=== PATIENT | male | born 1965 | race Caucasian/White ===

== ENCOUNTER 2023-08-31 14:49 | Outpatient (CLI) | payer OTHER, SELFPAY ==
[2023-08-31 17:13] LABS: Erythrocyte Sedimentation Rate 16 mm/hr (0-20)
[2023-09-05 12:15] LABS: BCR/abl Prior Result Not Given
[2023-09-05 12:59] LABS: BCR/abl P190 Not Detected; BCR/abl P210 Not Detected
[2023-09-05 13:00] LABS: BCR/abl P190 Chg YES; BCR/abl P210 Chg YES
== END 2023-08-31 14:50 | disposition home or self-care (01) ==
LOC: ANHLAB 14:57
PROVIDERS: PCP Family Medicine; Visit Provider Internal Medicine Hematology & Oncology
DX: D72.829 Elevated white blood cell count, unspecified (principal)
CPT/HCPCS: 36415; 81206; 81207; 85652; 88184

== ENCOUNTER 2024-01-18 13:40 | Outpatient (CLI) | payer OTHER, SELFPAY ==
[2024-01-18 13:53] LABS: Basophils Absolute Auto 0.1 K/mm3 (0.0-0.1); Basophils Percent Auto 0.7 % (0.2-1.2); Eosinophils Absolute Auto 0.3 K/mm3 (0-0.3); Eosinophils Percent Auto 2.3 % (0-4.4); Hematocrit 40.3 % (42.0-52.0); Hemoglobin 13.6 g/dL (14.0-18.0); Immature Granulocyte Absolute 0.07 K/mm3 (0.00-0.031); Immature Granulocyte Percent A 0.5 % (0-0.5); Lymphocytes Absolute Auto 4.79 K/mm3 (0.9-3.2); Lymphocytes Percent Auto 34.7 % (18.3-44.2); Mean Corpuscular HGB Conc 33.7 g/dl (32-36); Mean Corpuscular Hemoglobin 30.6 pg (26-34); Mean Corpuscular Volume 90.6 fl (80-100); Mean Platelet Volume 8.6 fl (7.4-10.4); Monocytes Absolute Auto 0.9 K/mm3 (0.1-0.6); Monocytes Percent Auto 6.5 % (2.6-8.5); Neutrophils Absolute Auto 7.6 K/mm3 (1.3-6.7); Neutrophils Percent Auto 55.3 % (45.5-73.1); Platelet Count Result 312 k/mm3 (150-375); Red Blood Count 4.45 M/mm3 (4.6-6.20); Red Cell Distribution Width 12.5 % (11.5-14.5); White Blood Count 13.8 K/mm3 (4.5-10.0)
== END 2024-01-18 13:41 | disposition home or self-care (01) ==
LOC: ANHLAB 13:44
PROVIDERS: PCP Family Medicine; Visit Provider Internal Medicine Hematology & Oncology
DX: D72.829 Elevated white blood cell count, unspecified (principal)
CPT/HCPCS: 36415; 85025

== ENCOUNTER 2024-10-10 14:56 | Outpatient (CLI) | payer OTHER, SELFPAY ==
--- OUTSIDE RECORDS SUMMARY | 2024-10-10 15:21 | XMS_ITS | Continuity of Care Document ---
Author Organization [facility] Address [address] [place] [address] Phone Care Team Providers Care Supervisor Of Research Name Role Phone Kennedi Purcell Unavailable Unavailable Allergies, Adverse Reactions, Alerts Substance Reaction Status Criticality No Known Allergies Active No Inform ation Medications Medication Instructions Dosage Effective Dates (start - stop) Status Comments cyclobenzaprine 5 mg tablet take 1 tablet by oral route 3 times every day as needed 5 MG - Active diclofenac sodium 50 mg tablet,delayed release take 1 tablet by oral route 3 times every day with food - Active lisinopril 20 mg tablet take 1 tablet by oral route every day 20 MG - Active allopurinol 100 mg tablet take 1 tablet by oral route every day 100 MG - Active gabapentin 300 mg capsule take 1 capsule by oral route 3 times every day as needed 300 MG - No Longer Active Procedures Procedure Date OFFICE/OUTPATIENT VISIT, [facility] Advance Directives Directive Yes / No Effective Date File Name No Information Encounters Encounter Description Practice Location Reason(s) For Visit Diagnoses Date Provider Providers Copied on Encounter OFFICE/OUTPAT IENT VISIT, [facility], [address] [place] [address], [facility], tel:[phone] [place] Back pain (chief complaint) Radicular pain in right arm Huseyin Kolb. [address] [place] [address], [facility], . tel:[phone] Family History Family Member Type Diagnosis Age At Onset No Information Payers Payer name Insurance type Covered republican ID Authoriza tion(s) No Information Social History Type Description Quantity Date Captured Comments Alcohol Use Details Unknown Caffeine Use Details Unknown Tobacco Use Status No Information Smoking Status No Information Sex Male Vital Signs Date / Time: Height Weight BMI Pulse Rate Blood Pressure Temperature Respiratory Rate Body Surface Area Head Circumference Head Circ. Percentile Wt./Dannie. Percentile BMI percentile Pulse Ox Inhaled Ox 10:05 AM 67.00 in 106.685 kg (235.20 lbs) 36.8 4 kg/m eter (2) 99 /min 110/75 mm[Hg] 98.60 F 22 /min 98 % 21 % Chief Complaint And Reason For Visit From encounter dated 06/14/2020 09:52'. Back pain (chief complaint). Description: Onset: 6 days ago. Severity level is moderate-severe. Theproblem is fluctuating. It occurs intermittently. Location of pain is middle back and right flank. Pain is radiated to the right arm.The patient describes the pain as an ache and numbness. Context: no injury. Symptoms are aggravated by ascending stairs, bending, changing positions, coughing, daily activities, defecation, descending stairs, extension, flexion, jumping, lifting, lying/rest, pushing, rolling over in bed, running, sneezing, standing, twisting and walking. Symptoms are relieved by heat. Additional information: causes numbness and muscle twitches in right arm. Reason For Referral Reason For Referral No Information Plan Of Treatment Date Type Action Status Patient Education Neuropathic Pain: Care Instructions completed History Of Present Illness Encounter Date Complaint History Of Prese nt Illness Back pain Onset: 6 days ag o. Severity level is moderate-severe. The problem is fluctuating. It occurs intermittently. Location of pain is middle back and right flank. Pain is radiated to the right arm.The patient describes the pain as an ache and numbness. Context: no injury. Symptoms are aggravated by ascending stairs, bending, changing positions, coughing, daily activities, defecation, descending stairs, extension, flexion, jumping, lifting, lying/rest, pushing, rolling over in bed, running, sneezing, standing, twisting and walking. Symptoms are relieved by heat. Additional information: causes numbness and muscle twitches in right arm. Functional Status Date Functional Assessmen t Pain Score 6/10 Instructions Date Instruction Additional Infor mation Ice, heat, gentle ma ssage and stretching Related to Radicular pain in right arm Ok to take Tylenol i f prescribed medicine is not helping pain Related to Radicular pain in right arm Assessments Type Assessment Date assessment Radicular pain in right arm Mental Status Date Cognitive Assessment Orientation - Dunmor ed to time, place, person, situation. Patient Care Teams Name Effective Dates (start - stop) Status Members No Information
--- OUTSIDE RECORDS SUMMARY | 2024-10-10 15:21 | XMS_ITS | Clinical Summary ---
Author Organization [facility] Address [address] [place] [id number] Care Team Providers Care Defence Intelligence Analyst Name Role Phone Lisa Alvarado MD Primary Care Provider [phone] Allergies No known active allergies Medications lisinopril (PRINIVIL) 20 MG tablet Take 1 tablet (20 mg total) by mouth daily. Active atorvastatin (LIPITOR) 40 MG tablet Take 1 tablet (40 mg total) by mouth nightly at bedtime. Active omeprazole (PRILOSEC) 20 MG capsule Take 1 capsule (20 mg total) by mouth daily. Active fexofenadine (DADA) 180 MG tablet Take 1 tablet (180 mg total) by mouth daily. Active methylPREDNISol one, RUPA, (MEDROL DOSEPAK) 4 MG tablet Follow package directions 1 each 3 Active Active Problems No known active problems Social History Tobacco Use Types Packs/Day Years Used Date Smoking Tobacco: Every Day Cigarettes Smokeless Tobacco: Never Alcohol Use Standard Drinks/Week Comments Yes 0 (1 standard drink = 0.6 oz pur e alcohol) ocassionally Sex and Gender Information Value Date Recorded Sex Assigned at Not on file Legal Sex Male 8:29 AM CDT Gender Identity Not on file Sexual Orientation Not on file Last Filed Vital Signs Vital Sign Reading Time Taken Comments Blood Pressure 132/72 12/22/2022 3:05 PM CDT Pulse 92 12/22/2022 3:15 PM CDT Temperature 37.2 C (99 F) 12/22/2022 2:01 PM CDT Respiratory Rate 20 12/22/2022 3:15 PM CDT Oxygen Saturation 92% 12/22/2022 3:15 PM CDT Inhaled Oxygen Concentration - - Weight 108.4 kg (238 lb 15.7 oz) 12/19/2022 9:38 AM CDT Height 167.6 cm (5' 6 ) 12/19/2022 9:38 AM CDT Body Mass Index 38.57 12/19/2022 9:38 AM CDT Plan of Treatment Health Maintenance Due Date Last Done Comments Colorectal Cancer Screening Colonoscopy (10 Years) 1966 Annual Physical 1969 Hepatitis C 1984 Hepatitis B Vaccines (1 of 3 - 19+ 3-dose series) 1985 Zoster Vaccines (1 of 2) 2016 Pneumococcal Vaccine: Pediatrics (0 to 5 Years) and At-Risk Patients (6 to 64 Years) (2 of 2 - PCV) 04/06/2019 04/06/2018 COVID-19 Vaccine (2023-2 5 season) 2024 11/20/2020, 10/27/2020 DTaP, Tdap and Td Vaccines ( 2 - Td or Tdap) 10/24/2027 10/23/2017 Meningococcal B Vaccine Aged Out No l onger eligible based on patient's age to complete this topic Meningococcal Vaccine Aged Out No latisha azalia eligible based on patient's age to complete this topic RSV Immunizations Under 20 Months Aged Out No longer eligible b ased on patient's age to complete this topic Insurance GENERIC - COMMERCIAL Care Teams Defence Intelligence Analyst Relationship Specialty [place] [id number] [address], [address]ES [id number] PCP - General FAMILY PRACTICE 12/21/22
--- OUTSIDE RECORDS SUMMARY | 2024-10-10 15:22 | XMS_ITS | Encounter Summary ---
Author Organization [facility] Address [address] [place] [address] Care Team Providers Care Enthone Solder Stripper Name Role Phone Deloris Castañeda MD Primary Care Provider [phone] Encounter Details Date Type Department Care Team (Late st Contact Info) Description 12/04/2023 Telephone [facility] [address] [place] [id number] Mary Velasquez, RT Social History Tobacco Use Types Packs/Day Years Used Date Smoking Tobacco: Never Assessed Personal Safety Answer Date Recorded Getting School Help Needed Not on file 06/16 Sex and Gender Information Value Date Recorded Sex Assigned at Not on file Legal Sex Male 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
--- OUTSIDE RECORDS SUMMARY | 2024-10-10 15:22 | XMS_ITS | Clinical Summary ---
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 Gender Identity Not on file Sexual Orientation Not on file Plan of Treatment Health Maintenance Due Date Last Done Comments Albumin Creatinine Ratio, Urine 1966 Colon Cancer Screening-Colonoscopy 1966 Depression Screening 1966 Hepatitis C Screening 1966 Prostate Cancer Screening-PSA 1966 eGFR 1966 Dilated Eye Exam 1966 Foot Exam 1966 Lipid Panel 1966 Hepatitis B Screening 1984 Regular Well Visit/Exam 18-64 1984 Zoster Vaccine (1 of 2) 2016 Pneumococcal vaccine <65 (2 of 2 - PCV) 04/06/2019 04/06/2018 Covid-19 Vaccine (3 - 2023-2 5 season) 2024 11/20/2020, 10/27/2020 Influenza Vaccine (#1) 2024 , 04/06/2018, 04/21/2017 Hemoglobin A1C 08/22/2024 02/20/2024, 01/0 03/2024, 02/13/2023, Additional history exists DTaP/Tdap/Td Vaccine (2 - Td or Tdap) 10/24/2027 10/23/2017 Insurance [facility] Address: [address] [address] [place] [address] [employer] OPEN ACCESS Care Teams Bumper And Painter Relationship Specialty Start Date End Date Deloris Castañeda MD PCP - General Internal Medicine 12/01/23
--- OUTSIDE RECORDS SUMMARY | 2024-10-10 15:22 | XMS_ITS | Clinical Summary ---
Author Organization [employer] [facility] [place] Address [address] [place] [address] [place] [address] Care Team Providers Care Electric Deicer Assembler Name Role Phone Deloris Castañeda MD Primary Care Provider [phone] Allergies No known active allergies Medications OMEGA-3 FATTY ACIDS (FISH OIL ORAL) Take by mouth. Activ e bi-level machineIndication s:PAVAN (obstructive sleep apnea) CWP with heated humidifier. Length of Need: 99 mo full face Simplus mask 1 per 6 mo, mask only every 3 mos ,1 cushions per mo, Tubing heated 1 per 3 mo, water chamber 1 per 6 months, chin strap 1 per 6 months, filters disposable 2 per month, filters reusable 1 per 6 months. IPP 22, EPP 18. 1 Each 022 Active ipratropium bromide (ATROVENT) 42 mcg (0.06 %) [place], Non-AerosolIndica tions:Non-seasona l allergic rhinitis, unspecified trigger Administer 2 Sprays in each nostril 3 times daily. 15 mL 2 024 Active CPAP / BIPAP supplies Length of need: 99 months Mask Type: full face with headgear every 6 months, mask only every 3 months,1 cushions per month. Tubing: heated 1 every 3 months, water chamber 1 every 6 months, chin strap 1 every 6 months, filters disposable 2 per month, filters reusable 1 per 6 months. 1 Each 024 Active Blood-Glucose Meter (Blood Glucose Monitoring) KitIndications:Ty pe 2 diabetes mellitus without complication, without long-term current use of insulin ([facility]) Use daily for blood glucose monitoring. Please dispense device covered by insurance. 1 Each 1 08/22/2 024 Active blood sugar diagnostic (Blood Glucose Test) StripIndications: Type 2 diabetes mellitus without complication, without long-term current use of insulin ([facility]) Test blood glucose daily fasting. 100 Each 024 Active lancetsIndication s:Type 2 diabetes mellitus without complication, without long-term current use of insulin ([facility]) Use daily for blood sugar monitoring. 100 Each 024 Active metFORMIN (GLUCOPHAGE) 500 mg tabletIndications :Type 2 diabetes mellitus without complication, without long-term current use of insulin ([facility]) Take 1 Tablet (500 mg) by mouth daily at bedtime. 90 Tablet 025 Active rosuvastatin (CRESTOR) 40 mg tabletIndications :Hyperlipidemia, unspecified hyperlipidemia type Take 1 Tablet (40 mg) by mouth daily at bedtime. 90 Tablet 025 Active omeprazole (PriLOSEC) 20 mg Tablet, Delayed Release (E.C.)Indications :Personal history of peptic ulcer disease Take 1 Tablet (20 mg) by mouth daily before breakfast. 90 Tablet 025 Active fexofenadine (DADA) 180 mg tabletIndications :Seasonal allergic rhinitis, unspecified trigger Take 1 Tablet (180 mg) by mouth daily. 90 Tablet 025 Active aspirin (Kushal Low Dose Aspirin) 81 mg Tablet, Delayed Release (E.C.)Indications :HTN (hypertension), benign Take 1 Tablet (81 mg) by mouth daily. 025 Active varenicline tartrate (CHANTIX) 1 mg TabletIndications :Cigarette nicotine dependence, uncomplicated Take 1 Tablet (1 mg) by mouth 2 times daily. 180 Tablet 2 025 Active fluticasone propionate (Flonase) 50 mcg/spray [place], Suspension nasal inhalerIndication s:Non-seasonal allergic rhinitis, unspecified trigger Administer 2 Sprays in each nostril daily. 32 Gram 025 Active lisinopriL (PRINIVIL) 20 mg tabletIndications :HTN (hypertension), benign Take 1 Tablet (20 mg) by mouth daily. 90 Tablet 025 Active tirzepatide (Mounjaro) 5 mg/0.5 mL Pen InjectorIndicatio ns:Type 2 diabetes mellitus without complication, without long-term current use of insulin ([facility]) Inject 0.5 mL (5 mg) by subcutaneous injection every 7 days. 2 mL 025 Active lisinopriL (PRINIVIL) 20 mg tabletIndications :HTN (hypertension), benign Take 1 Tablet (20 mg) by mouth daily. 90 Tablet 025 2024 Discontinued(R eorder) tirzepatide (Mounjaro) 2.5 mg/0.5 mL Pen InjectorIndicatio ns:Type 2 diabetes mellitus without complication, without long-term current use of insulin ([facility]) Inject 0.5 mL (2.5 mg) by subcutaneous injection every 7 days. 2 mL 025 2024 Discontinued mupirocin calcium (BACTROBAN) 2 % CreamIndications: Papule of skin Apply to affected area 2 times daily for 14 days. Apply to skin are of concern for 10 days , twice daily. 22 Gram 025 2024 Active Problems Problem Noted Date Diagnosed Date Type 2 diabetes mellitus wit hout complication, without long-term current use of insulin 02/22/2024 Hx of gastric ulcer 11/23/2023 Lung cancer screening declined by patient 2022 Low serum alkaline phosphatase 08/16/2022 Idiopathic gout 03/09/2022 Left chronic serous otitis media 03/09/2022 Leucocytosis 08/31/2018 Overview (08/17/2023): 08/2023 - eval with hematology. Possibly reactive. Ongoing work up. Non-seasonal allergic rhinitis 08/31/2018 PAVAN (obstructive sleep apnea) 08/31/2018 Obesity (BMI 30.0-34.9) 08/31/2018 Personal history of peptic ulcer disease 018 HTN (hypertension), benign 09/19/2017 Elevated triglycerides with high cholesterol Cigarette dependence 06/14/2017 Resolved Problems Problem Noted Date Diagnosed Date Resolved Date Smoker 11/14/2022 07/13/2023 Left hand pain 03/09/2022 07/13/2023 Hyperkalemia 03/09/2022 07/13/2023 Prediabetes 06/14/2017 02/22/2024 Encounters Date Type Department Care Team Description 10/01/2024 8:00 AM CDT Office Visit [facility] at [place] [address] [place] [address] Annabella Meek, TRAY Type 2 diabetes mellitus without complication, without long-term current use of insulin (CMS/HCC) (Primary Dx); Obesity (BMI 30.0-34.9); HTN (hypertension), benign; Cigarette dependence 10/01/2024 External Device Data STL ABSTRACTION Provider, Abstract 09/18/2024 External Device Data STL ABSTRACTION Provider, Abstract 09/18/2024 External Device Data STL ABSTRACTION Provider, Abstract 09/10/2024 9:20 AM CDT Procedure visit [facility] at [place] [address] [place] [address] Issue of repeat prescription (Primary Dx) 09/10/2024 Refill [place] [address] [place] [address] Annabella Meek, TRAY Non-seasonal allergic rhinitis, unspecified trigger 09/07/2024 External Device Data STL ABSTRACTION Provider, Abstract 09/06/2024 External Device Data STL ABSTRACTION Provider, Abstract 09/03/2024 8:30 AM TOPPER PRESS OPERATOR Office Visit [place] [address] [place] [address] Annabella Meek, TRAY Type 2 diabetes mellitus without complication, without long-term current use of insulin (CMS/HCC) (Primary Dx); HTN (hypertension), benign; Cigarette dependence; Severe obesity (BMI 35.0-39.9) with comorbidity (CMS/HCC); Papule of skin 08/23/2024 8:20 AM TOPPER PRESS OPERATOR Procedure visit [place] [address] [place] [address] Encounter for issue of repeat prescription (Primary Dx) 08/21/2024 External Device Data STL ABSTRACTION Provider, Abstract 08/21/2024 Refill [facility] [place] [address] [place] [address] Deloris Castañeda MD Type 2 diabetes mellitus without complication, without long-term current use of insulin ([facility]); Hyperlipidemia, unspecified hyperlipidemia type; Personal history of peptic ulcer disease; Seasonal allergic rhinitis, unspecified trigger 08/06/2024 External Device Data STL ABSTRACTION Provider, Abstract 07/31/2024 External Device Data STL ABSTRACTION Provider, Abstract 07/30/2024 10:00 AM TOPPER PRESS OPERATOR Office Visit [facility] [place] [address] [place] [address] Deloris Castañeda MD Recurrent acute serous otitis media of left ear (Primary Dx) 07/25/2024 External Device Data STL ABSTRACTION Provider, Abstract from Last 3 Months Immunizations Immunization Administration Dates Next Due (ADACEL/BOOSTRIX)(10 YR UP) TDAP VACCINE, 0.5ML, IM 10/23/2017 (PFIZER)(12 YR UP) COVID-19 VACCINE - EMERGENCY USE AUTHORIZATION, MRNA, [id number](PF) 30 MCG/0.3 ML IM SUSP 11/20/2020,10/27/2020 (PNEUMOVAX 23)(50 YRS UP) PN EUMOCOCCAL POLYSACCHARIDE (PPV23) 0.5 ML, IM 04/06/2018 INFLUENZA VACCINE QUADRIVALENT 3 YR UP PF IM INFLUENZA VACCINE QUADRIVALENT 6 MOS UP IM 04/06 INFLUENZA VACCINE QUADRIVALENT 6 MOS UP PF IM INFLUENZA VACCINE TRIVALENT SPLIT VIRUS, (6 MOS UP), 0.5ML (PF), IM 04/10/2024 Family History Medical History Relation Name Comments No Known Problems Brother No Known Problems Daughter Heart Disease Father [place] fatal Stroke Maternal Grandfather Unknown Maternal Grandmother Hypertension Mother Heart Attack Paternal Grandfather Unknown Paternal Grandmother Sudden Sister over dose Relation Name Status Comments Brother Alive Daughter Alive Father Maternal Grandfather Maternal Grandmother Mother Alive Paternal Grandfather Paternal Grandmother Sister Social History Tobacco Use Types Packs/Day Years Used Date Smoking Tobacco: Every Day Cigarettes 1 30 Smokeless Tobacco: Never Tobacco Cessation:Ready to Q uit: Not Asked; Counseling Given: Not Answered Alcohol Use Standard Drinks/Week Comments No 0 (1 standard drink = 0.6 oz pur e alcohol) Sex and Gender Information Value Date Recorded Sex Assigned at Not on file Legal Sex Male 1:07 PM CDT Gender Identity Not on file Sexual Orientation Not on file Last Filed Vital Signs Vital Sign Reading Time Taken Comments Blood Pressure 124/68 10/01/2024 8:02 AM CDT Pulse 81 10/01/2024 8:02 AM CDT Temperature 36.9 C (98.5 F) 10/01/2024 8:02 AM CDT Respiratory Rate 18 10/01/2024 8:02 AM CDT Oxygen Saturation 96% 10/01/2024 8:02 AM CDT Inhaled Oxygen Concentration - - Weight 105.7 kg (233 lb) 10/01/2024 8:02 AM CDT Height 167.6 cm (5' 6 ) 10/01/2024 8:02 AM CDT Body Mass Index 37.61 10/01/2024 8:02 AM CDT Plan of Treatment Upcoming Encounters Date Type Department Care Team (Late st Contact Info) Description 10/10/2024 3:30 PM CDT Office Visit [facility] Oncology and Hematology - [place] [address] [facility] [address] [place] [address] Dawson Borrego MD [address] [facility] [address] [place] [address] 10/29/2024 8:00 AM CDT Office Visit [facility] [employer] [place] [address] [place] [address] Annabella Meek, ANP [address] [place] [address] Health Maintenance Due Date Last Done Comments HEPATITIS B VACCINES (1 of 3 - 19+ 3-dose series) 1985 FIT-DNA Q 3 years 11/11/2011 FIT/FOBT Q 1 year 11/11/2011 Flex Sig/CT Colonography Q 5 years 11/11/2011 Lung Cancer Screening 2016 ZOSTER VACCINE (1 of 2) 2016 COVID-19 Vaccine (2023-2 5 season) 2024 11/20/2020, 10/27/2020 Preventative Visit- Commercial 07/03/2024 DIABETES HBA1C Q 6 MONTHS 12/13/20242023, 02/20/2024, 07/11/2023, Additional history exists DIABETES ANNUAL FOOT EXAM 02/21/2025 02/22/2024, DIABETES MICROALBUMIN ANNUAL SCREEN 06/14/2025 06/14/2024, 11/03/2022, 08/09/2022 LDL CHOLESTEROL ANNUAL 06/14/2025 , 02/20/2024, 07/11/2023, Additional history exists COLORECTAL SCREENING 07/03/2025 07/03/2015 (Previously completed) Colorectal Cancer Screening 07/03/2025 DIABETES ANNUAL RETINAL EXAM 08/06/2025 08/06/2024 DTAP/TDAP/TD VACCINES (2 - T d or Tdap) 10/24/2027 10/23/2017 INFLUENZA VACCINE Completed 04/10/2024, , 04/02/2021, Additional history exists Procedures Procedure Name Priority Date/Time Associated Diagnosis Comments MICROALBUMIN/CREATI NINE RATIO, RANDOM UR Routine 06/14/2024 8:01 AM TOPPER PRESS OPERATOR Type 2 diabetes mellitus without complication, without long-term current use of insulin ([facility]) LIPID PANEL Routine 06/14/2024 8:01 AM TOPPER PRESS OPERATOR Hyperlipidemia, unspecified hyperlipidemia type HEMOGLOBIN A1C Routine 06/14/2024 8:01 AM TOPPER PRESS OPERATOR Type 2 diabetes mellitus without complication, without long-term current use of insulin ([facility]) from Last 3 Months or Most Recently Relevant to Health Maintenance Results * MICROALBUMIN/CREATININE RATIO, RANDOM UR (06/14/2024 8:01 AM TOPPER PRESS OPERATOR) Creatinine, Urine 84 20 - 320 mg/dL [facility] MICROALBUMIN, URINE <0.2 See Note: mg/dL [facility] Comment: Reference Range: Reference Range Not established MICROALBUMIN/CREAT RATIO, UR NOTE <30 mg/g creat [facility] Comment: NOTE: The urine albumin value is less than 0.2 mg/dL therefore we are unable to calculate excretion and/or creatinine ratio. The ADA defines abnormalities in albumin excretion as follows: Albuminuria Category Result (mg/g creatinine) Normal to Mildly increased <30 Moderately increased 30-299 Severely increased > OR = 300 The ADA recommends that at least two of three specimens collected within a 3-6 month period be abnormal before considering a patient to be within a diagnostic category. Test Performed at: [facility] [address] [address] [address] Flory Zuleta MD Urine URINE SPECIMEN OBTAINED BY CLEAN CATCH PROCEDURE / Unknown 06/14/2024 8:01 AM TOPPER PRESS OPERATOR 06/15/2024 8:40 AM TOPPER PRESS OPERATOR Annabella Meek ANP URINE ORDERABLES Final Resul t [facility] [phone] [facility] [address] [place] [address] * (ABNORMAL) HEMOGLOBIN A1C (06/14/2024 8:01 AM TOPPER PRESS OPERATOR) HEMOGLOBIN A1C 6.3(H) <5.7 % of total Hgb [facility] Comment: For someone without known diabetes, a hemoglobin A1c value between 5.7% and 6.4% is consistent with prediabetes and should be confirmed with a follow-up test. For someone with known diabetes, a value <7% indicates that their diabetes is well controlled. A1c targets should be individualized based on duration of diabetes, age, comorbid conditions, and other considerations. This assay result is consistent with an increased risk of diabetes. Currently, no consensus exists regarding use of hemoglobin A1c for diagnosis of diabetes for children. ESTIMATED AVERAGE GLUCOSE (MG/DL) 134 mg/dL [facility] ESTIMATED AVERAGE GLUCOSE (MMOL/L) 7.4 mmol/L [facility] Comment: Test Performed at: [place] [address] [address] Ellen-Bella Mabel Vo Blood 06/14/2024 8:01 AM TOPPER PRESS OPERATOR 06/14/2024 10:59 PM TOPPER PRESS OPERATOR Annabella Shu Fantasma [facility] CHEMISTRY ORDERABLES Final R esult [facility] [phone] [place] [address] [address] [address] * (ABNORMAL) LIPID PANEL (06/14/2024 8:01 AM TOPPER PRESS OPERATOR) CHOLESTEROL 137 <200 mg/dL [facility] HDL 42 > OR = 40 mg/dL [facility] TRIGLYCERIDE 281(H) <150 mg/dL [facility] Comment: If a non-fasting specimen was collected, consider repeat triglyceride testing on a fasting specimen if clinically indicated. Gricelda et al. J. of Clin. Lipidol. 2015;9:129-169. LDL CALCULATED 62 mg/dL (calc) [facility] Comment: Reference range: <100 Desirable range <100 mg/dL for primary prevention; <70 mg/dL for patients with CHD or diabetic patients with > or = 2 CHD risk factors. LDL-C is now calculated using the Santos-Purvi calculation, which is a validated novel method providing better accuracy than the Friedewald equation in the estimation of LDL-C. Santos MONROY et al. JOSEMANUEL. 2013;310(19): 7898-4648 (http://education.LendingStandard/faq/HEZ907) CHOL/HDL RATIO 3.3 <5.0 (calc) [facility] NON-HDL CHOLESTEROL 95 <130 mg/dL (calc) [facility] Comment: For patients with diabetes plus 1 major ASCVD risk factor, treating to a non-HDL-C goal of <100 mg/dL (LDL-C of <70 mg/dL) is considered a therapeutic option. Test Performed at: [facility] [place] [address] [address] [address] [facility] Blood 06/14/2024 8:01 AM TOPPER PRESS OPERATOR 06/14/2024 10:59 PM TOPPER PRESS OPERATOR us Annabella Meek [facility] CHEMISTRY ORDERABLES Final R esult [facility] [phone] [facility] [address] [place] [address] from Last 3 Months or Most Recently Relevant to Health Maintenance Insurance [facility] OPEN ACCESS * Guarantor: [employer] Account Type Relation to Patient Date of Phone Billing Address Corporate Employer ATTN: [employer] [address] [address] Care Teams Electric Deicer Assembler Relationship Specialty Start Date End Date Deloris Castañeda MD [address] [place] [address] PCP - General Internal Medicine 11/23/23
--- OUTSIDE RECORDS SUMMARY | 2024-10-10 15:22 | XMS_ITS | Referral Summary ---
Author Organization [facility] Address [address] [place] [address] Care Team Providers Care Plaster Maker Name Role Phone Deloris Castañeda MD Primary Care Provider [phone] Allergies No known active allergies Social History Tobacco Use Types Packs/Day Years Used Date Smoking Tobacco: Never Assessed Personal Safety Answer Date Recorded Getting School Help Needed Not on file 06/16 Sex and Gender Information Value Date Recorded Sex Assigned at Not on file Legal Sex Male 1:25 PM STAFF PHARMACIST Gender Identity Not on file Sexual Orientation Not on file Plan of Treatment Not on file Insurance [facility] [address] [facility] OPEN ACCESS Care Teams Plaster Maker Relationship Specialty Start Date End Date Deloris Castañeda MD PCP - General Internal Medicine 12/01/23
--- OUTSIDE RECORDS SUMMARY | 2024-10-10 15:22 | XMS_ITS | Clinical Summary ---
Author Organization [facility] Address [address] [place] [address] Phone Care Team Providers Care Sewage Screen Operator Name Role Phone Sotero iVllarreal Nazario DPM Unavailable [phone] Allergies No known active allergies Medications Omeprazole 20 MG Tablet Delayed Response Take 1 Tab by mouth 2 times daily. 3 11/22/2015 Active rosuvastatin (CRESTOR) 40 MG Tablet Take 40 mg by mouth. 12/01/2021 Active lisinopril (PRINIVIL, ZESTRIL) 20 MG Tablet Take 20 mg by mouth. 06/06/2022 Active fluticasone (FLONASE) 50 MCG/ACT Suspension 2 Sprays by Nasal route. 06/06/2022 Active Active Problems Problem Noted Date Diagnosed Date Anxiety 06/17/2022 Arthritis 06/17/2022 COPD (chronic obstructive pulmonary disease) Diverticulitis 06/17/2022 Gout 06/17/2022 Hyperlipemia 06/17/2022 Hypertension 06/17/2022 Gastric ulcer 06/17/2022 Closed nondisplaced fracture of proximal phalanx of lesser toe of left foot 04/08/2016 Immunizations Immunization Administration Dates Next Due Covid-19, Mrna, Lnp-s, Pf, 30 Mcg/0.3 Ml Dose (Hiram dean) 11/20/2020,10/27/2020 Influenza Vaccine, Quadrivalent, PF 03/30/2020,1 Influenza, Injectable, Quadrivalent 04/06/2018 Pneumococcal Vaccine Adult - 23 Valent 8 TDAP Vaccine 10/23/2017 Family History Medical History Relation Name Comments No Known Problems Father No Known Problems Mother Relation Name Status Comments Father Alive Mother Alive Social History Tobacco Use Types Packs/Day Years Used Date Smoking Tobacco: Every Day Cigarettes 1 20 Smokeless Tobacco: Never Tobacco Cessation:Ready to Q uit: Not Asked; Counseling Given: Not Answered Alcohol Use Standard Drinks/Week Comments No 0 (1 standard drink = 0.6 oz pur e alcohol) Education Answer Date Recorded What is the highest level of school you have completed or the highest degree you have received? 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 Not on file Not on file Not on file Last Filed Vital Signs Vital Sign Reading Time Taken Comments Blood Pressure 114/66 06/17/2022 10:47 AM SUPERINTENDENT OPERATING Pulse 98 06/17/2022 10:47 AM SUPERINTENDENT OPERATING Temperature 36.2 C (97.1 F) 06/17/2022 10:47 AM SUPERINTENDENT OPERATING Respiratory Rate 14 06/17/2022 10:4 7 AM SUPERINTENDENT OPERATING Oxygen Saturation 98% 06/17/2022 10: 47 AM SUPERINTENDENT OPERATING Inhaled Oxygen Concentration - - Weight 110.3 kg (243 lb 1.6 oz) 022 10:47 AM SUPERINTENDENT OPERATING Height 170.2 cm (5' 7 ) 06/17/2022 10:4 7 AM SUPERINTENDENT OPERATING Body Mass Index 38.07 06/17/2022 10:47 AM SUPERINTENDENT OPERATING Plan of Treatment Health Maintenance Due Date Last Done Comments Hepatitis C Virus (HCV) Screening 1965 Hepatitis B Immunization (1 of 3 - 19+ 3-dose series) 1985 Colonoscopy 11/11/2011 Colorectal Cancer Screening 11/11/2011 Cologuard 2016 Immunochemical Fecal Occult Blood 2016 Zoster Immunization (1 of 2) 2016 Pneumococcal Immunization (5 0+ years) (2 of 2 - PCV) 04/06/2019 04/06/2018 Influenza Immunization (#1) 03/03/202403/04, 04/06/2018, 04/21/2017 SARS-COV-2 Immunization ( - 2024-25 season) 2024 11/20/2020, 10/27/2020 Respiratory Syncytial Virus (RSV) Immunization (Adult) (1 - 1-dose 75+ series) 2041 DTaP/Tdap/Td Immunization Discontinued 10/23/2017 Pneumococcal Immunization Combined Discontinued 04/06/2018 Meningococcal Immunization (ACWY) Aged Out No longer eligible based on patient's age to complete this topic Rotavirus Immunization Aged Out No lo nger eligible based on patient's age to complete this topic Insurance Care Teams Sewage Screen Operator Relationship Specialty Start Date End Date Sotero Villarreal DPM Podiatry 04/08/16
--- OUTSIDE RECORDS SUMMARY | 2024-10-10 15:22 | XMS_ITS | Continuity of Care Document ---
Author Organization [facility] Address [address] [place] [address] Phone Care Team Providers Care Greenhouse Assistant Name Role Phone Rufus Saxena MD Unavailable Unavailable Allergies, Adverse Reactions, Alerts Substance Reaction Status Criticality No Known Allergies Active No Inform ation Medications Medication Instructions Dosage Effective Dates (start - stop) Status Comments Flonase 50 mcg/actuation Nasal [place] inhale 2 spray (100MCG) by intranasal route every day in each nostril 100 MCG - Active hydrocodone-acetam inophen 7.5 mg-500 mg tablet take 1 tablet by oral route every 6 hours as needed for pain - Active avoid driving or opeate machines Xanax 1 mg tablet take 1 tablet (1MG) by oral route 3 times every day 1 MG - Active avoid driving or operate machines Lopid 600 mg tablet take 1 tablet (600MG) by oral route 2 times every day 30 minutes before morning and evening meal 600 MG - Active Lipitor 40 mg tablet take 1 tablet (40MG) by oral route every day 40 MG - Active Vitamin D2 50,000 unit capsule take 1 capsule ([id number]) by oral route every week - Active Procedures Procedure Date OFFICE/OUTPATIENT VISIT, EST OFFICE/OUTPATIENT VISIT, EST OFFICE/OUTPATIENT VISIT, EST OFFICE/OUTPATIENT VISIT, EST PREV VISIT, NEW, AGE 40-64 Advance Directives Directive Yes / No Effective Date File Name No Information Encounters Encounter Description Practice Location Reason(s) For Visit Diagnoses Date Provider Providers Copied on Encounter [facility], [address], [place], [place], [id number], [place] [phone] [facility] No Information 5 Hemanth Hooper. [address], [place], [place], [id number] , [place]. [phone] [facility], [address], [place], [place], [address], [place] tel:[phone] [facility] No Information 3 Hemanth Hooper. [address], [place], [place], [address] , [place]. tel:[phone] OFFICE/OUTPA TIENT VISIT, [facility], [address], [place], [place], [address], [place] tel:[phone] [facility] shoulder pain (chief complaint)a nxiety (chief complaint) Dietary surveillance and counselingPain in joint involving shoulder regionHypertension , UnspecifiedOther and unspecified hyperlipidemia 3 Hemanth Hooper. [address], [place], [place], [address] , [place]. [phone] Referring Provider: Roe [address], [place], [place], [id number]. tel:[phone] OFFICE/OUTPA TIENT VISIT, [facility], [address], [place], [place], [address], [place] tel:[phone] [facility] chronic pain (chief complaint)a nxiety (chief complaint)H LP (chief complaint) Dietary surveillance and counselingCHRONIC PAIN NECHypertension, UnspecifiedOther and unspecified hyperlipidemia 3 Hemanth Hooper. [address], [place], [place], [address] , [place]. tel:[phone] Referring Provider: Roe [address], [place], [place], [address]. tel:[phone] OFFICE/OUTPA TIENT VISIT, [facility], [address], [place], [place], [address], [place] tel:[phone] [facility] chronic pain (chief complaint)a nxiety (chief complaint)S inus congestion (chief complaint) Dietary surveillance and counselingAllergic rhinitis, cause unspecifiedCHRONIC PAIN NECGeneralized anxiety disorder 3 Hemanth Hooper. [address], [place], [place], [address] , . tel:[phone] Referring Provider: Roe [address], [place], [place], [address]. tel:[phone] OFFICE/OUTPA TIENT VISIT, EST [facility], [address], [place], [place], [address], tel:[phone] [facility] shoulder pain (chief complaint)H LP (chief complaint)c arpal tunnel (chief complaint) Dietary surveillance and counselingCarpal Tunnel SyndromeOther and unspecified hyperlipidemiaUnsp ecified vitamin d deficiency 3 Hemanth Hooper. [address], [place], [place], [address] , [place]. tel:[phone] Referring Provider: Roe [address], [place], [place], [address]. tel:[phone] PREV VISIT, NEW, AGE 40-64 [facility], [address], [place], [place], [address], [place] tel:[phone] [facility] Physical (chief complaint) Dietary surveillance and counselingRoutine Medical ExamRoutine Medical Exam 2 Hemanth Hooper. [address], [place], [place], [address] , [place]. [phone] Referring Provider: Roe [address], [place], [place], [address]. tel:[phone] Family History Family Member Type Diagnosis Age At Onset Father Problem (finding) Alive and well Sister Problem (finding) overdose Mother Problem (finding) Alive and well Payers Payer name Insurance type Covered constitution party ID Authoriza tion(s) No Information Social History Type Description Quantity Date Captured Comments Sex Male Smoking Status No Information Chief Complaint And Reason For Visit No Information Plan Of Treatment Date Type Action Status Goal Tobacco cessation counseling completed Goal Tobacco cessation counseling completed Goal Tobacco cessation counseling completed Goal Tobacco cessation counseling completed Referral Ordered: Referral: Plastic Surg. Evaluate and treat. ordered Referral Ordered: MOTOR NERVE CONDUCTION TEST Right arm ordered Referral Ordered: SENSE NERVE CONDUCTION TEST Right arm ordered Referral Ordered: HAND XRAY, TWO VIEW Right ordered History Of Present Illness Encounter Date Complaint History Of Prese nt Illness No Information Instructions Date Instruction Additional Infor mation Decrease caloric intake Related to Dietary surveillance counseling Dietary counseling Related to Di etary surveillance counseling Dietary counseling Related to Di etary surveillance counseling Decrease caloric intake Related to Dietary surveillance counseling Decrease caloric intake Related to Dietary surveillance counseling Dietary counseling Related to Di etary surveillance counseling Dietary counseling Related to Di etary surveillance counseling Decrease caloric intake Related to Dietary surveillance counseling Decrease caloric intake Related to Dietary surveillance counseling Dietary counseling Related to Di etary surveillance counseling Assessments Type Assessment Date No Information
--- OUTSIDE RECORDS SUMMARY | 2024-10-10 15:22 | XMS_ITS | Encounter Summary ---
Author Organization [facility] Address [address] [place] [address] Care Team Providers Care Printing Worker Supervisor Name Role Phone No, Physician Primary Care Provider [phone] Lisa Alvarado MD Primary Care Provider Deloris Castañeda MD Primary Care Provider [phone] Encounter Details Date Type Department Care Team (Late st Contact Info) Description 08/02/2022 Telephone [facility] [address] [place] [id number] Mary Velasquez, RT Social History Tobacco Use Types Packs/Day Years Used Date Smoking Tobacco: Never Assessed Sex and Gender Information Value Date Recorded Sex Assigned at Not on file 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
[2024-10-10 15:26] LABS: Basophils Absolute Auto 0.1 K/mm3 (0.0-0.1); Basophils Percent Auto 0.8 % (0.2-1.2); Eosinophils Absolute Auto 0.3 K/mm3 (0-0.3); Hematocrit 41.4 % (42.0-52.0); Hemoglobin 14.1 g/dL (14.0-18.0); Immature Granulocyte Absolute 0.05 K/mm3 (0.00-0.031); Immature Granulocyte Percent A 0.3 % (0-0.5); Lymphocytes Absolute Auto 5.15 K/mm3 (0.9-3.2); Lymphocytes Percent Auto 35.2 % (18.3-44.2); Mean Corpuscular HGB Conc 34.1 g/dl (32-36); Mean Corpuscular Hemoglobin 30.5 pg (26-34); Mean Corpuscular Volume 89.6 fl (80-100); Mean Platelet Volume 8.2 fl (7.4-10.4); Monocytes Absolute Auto 0.8 K/mm3 (0.1-0.6); Monocytes Percent Auto 5.7 % (2.6-8.5); Neutrophils Absolute Auto 8.2 K/mm3 (1.3-6.7); Platelet Count Result 347 k/mm3 (150-375); Red Blood Count 4.62 M/mm3 (4.6-6.20); Red Cell Distribution Width 12.6 % (11.5-14.5); White Blood Count 14.6 K/mm3 (4.5-10.0)
[2024-10-10 15:28] LABS: Blood Urea Nitrogen 22 mg/dL (8-26); Carbon Dioxide 23 mmol/L (22-30); Chloride 102 mmol/L (98-109); Estimated Glomerular Filt Rate > 60; Glucose 85 mg/dL (70-105); Ionized Calcium (POC) 1.17 mmol/L (1.11-1.31); Sodium 137 mmol/L (138-146)
== END 2024-10-10 14:57 | disposition home or self-care (01) ==
LOC: ANHLAB 14:58
PROVIDERS: PCP Family Medicine; Visit Provider Internal Medicine Hematology & Oncology
DX: D72.829 Elevated white blood cell count, unspecified (principal)
CPT/HCPCS: 36415; 80047; 85025